=== PATIENT | female | born 1970 | race Caucasian/White ===

== ENCOUNTER 2018-09-22 00:16 | Observation (INO) | payer BC ==
[~2018-09-22] VITALS: Ht 165.1 cm; Wt 113.4 kg
[~2018-09-22 00:16] MED LIST: CYCL10 PO; NAPR500 PO; Naprosyn500 MG PO; Norco 5-325 Ta1 EACH PO
[2018-09-22 01:29] LABS: BASOPHILS ABSOLUTE AUTO 0.05 K/mm3 (0.00-0.23); BASOPHILS PERCENT AUTO 1 % (0-2); EOSINOPHILS ABSOLUTE AUTO 0.12 K/mm3 (0.00-0.68); EOSINOPHILS PERCENT AUTO 1 % (0-6); Hematocrit 45.1 % (33.0-51.0); Hemoglobin 14.5 g/dL (11.5-16.0); IMMATURE GRAN ABSOLUTE AUTO 0.03 K/mm3 (0.00-0.10); IMMATURE GRAN PERCENT AUTO 0 % (0-1); LYMPHOCYTES ABSOLUTE AUTO 1.47 K/mm3 (0.84-5.20); LYMPHOCYTES PERCENT AUTO 14 % (21-46); MONOCYTES ABSOLUTE AUTO 0.45 K/mm3 (0.16-1.47); MONOCYTES PERCENT AUTO 4 % (4-13); Mean Corpuscular HGB 30.5 pg (26.0-34.0); Mean Corpuscular HGB Conc 32.2 g/dL (31.5-36.5); Mean Corpuscular Volume 95 fL (80-100); NEUTROPHILS ABSOLUTE AUTO 8.11 K/mm3 (1.96-9.15); NEUTROPHILS PERCENT AUTO 79 % (41-73); Platelet Count 375 K/mm3 (150-400); RDW Coefficient Variation 12.5 % (11.7-14.2); RDW Standard Deviation 43.7 fL (35.1-46.3); Red Blood Cell Count 4.75 M/mm3 (3.80-5.20); White Blood Cell Count 10.23 K/mm3 (4.00-11.30)
[2018-09-22 01:51] LABS: Alanine Aminotransfer (ALT/SGP 38 U/L (12-78); Albumin, Blood 4.1 g/dL (3.4-5.0); Albumin/Globulin Ratio 0.8 (0.8-1.8); Alk Phos 67 U/L (50-136); Anion Gap 8 mmol/L (6-16); Aspartate Aminotrans (AST/SGOT 31 U/L (12-37); Bilirubin, Total 0.5 mg/dL (0.1-1.0); Blood Urea Nitrogen 12 mg/dL (8-24); Bun/Creatinine Ratio 17.3 (12.0-20.0); CO2, Blood 27 mmol/L (21-32); Calcium, Blood 10.8 mg/dL (8.5-10.1); Chloride, Blood 103 mmol/L (98-108); Creatinine, Blood 0.69 mg/dL (0.40-1.00); Glomerular Filtration Rate >60 (60-); Glucose, Blood 154 mg/dL (70-99); Potassium, Blood 3.8 mmol/L (3.5-5.5); Sodium, Blood 138 mmol/L (136-145); Total Protein, Blood 9.1 g/dL (6.4-8.2)
--- NOTE | 2018-09-22 11:35 | NUR ---
PT TO DAY SURGERY AT THIS TIME. ALL JEWELRY REMOVED, PLACED IN CUP, AND HANDED TO SPOUSE.
--- NOTE | 2018-09-22 12:09 | NUR ---
ADMINISTRATIVE TECHNICIAN AT BEDSIDE REPORT DONE
--- NOTE | 2018-09-22 13:42 | NUR ---
09/22/18 1342 Nicole Garcia ALL COUNTS CORRECT.
--- NOTE | 2018-09-22 15:30 | NUR ---
POST OP PT ARRIVAL TO ROOM AT APPROX 1445 S/P LAP TAY. PT REPORTS MINIMAL PAIN. LAP SITES X4 TO ABD ARE CDI. PT YESSI JELLOS AND CRACKERS AT THIS TIME. DENIES N/V. IVF INFUSING PER ORDERS. VSS AND IN PROGRESS. PT UP TO RESTROOM WITH SBA TO VOID. FAMILY AT SIDE FOR SUPPORT. USES CALL LIGHT APPROPRIATELY.
--- NOTE | 2018-09-22 16:50 | NUR ---
SHIFT SUMMARY PT DOING WELL POST OP. VSS. PT TAKING 1 NORCO FOR PAIN. YESSI PO INTAKE WITH NO N/V. STERI STRIPS TO ABD X4 REMAIN CDI. PLAN IS TO AMBULATE PT IN HALLWAY AFTER DINNER. FAMILY AT BEDSIDE FOR SUPPORT. CALL LIGHT WITHIN REACH.
[2018-09-22] MEDS ORDERED: HYDR1TAB94 PO (17:06)
--- NOTE | 2018-09-22 17:55 | NUR ---
DISCHARGE PT DISCHARGING HOME. PT PAIN MANAGED WITH 1 NORCO, PT INDEPENDENTLY AMBULATING, VOIDING, AND TOLERATING PO INTAKE WITH NO N/V. POST OP VSS AND COMPLETE. PT EDUCATED ON AND RECEIVED PRINTED DISCHARGE INSTRUCTIONS AND VERBALIZED AN UNDERSTANDING. HARD RX GIVEN TO PT FOR NORCO. IVS DC'D. PT GATHERING ALL PERSONAL BELONGINGS. FAMILY AT SIDE TO TAKE PT HOME.
== END 2018-09-22 18:18 | disposition home or self-care (01) ==
LOC: ER 00:16 → SURS 04:34
PROVIDERS: Emergency Medicine; ADMIT Surgery
PROC: BF13YZZ Fluoroscopy of Gallbladder and Bile Ducts using Other Contrast (ICD-10-PCS; principal; 2018-09-22 11:30)
PROC: 0FT44ZZ Resection of Gallbladder, Percutaneous Endoscopic Approach (ICD-10-PCS; principal; 2018-09-22 11:30)
DX: K80.00 Calculus of gallbladder with acute cholecystitis without obstruction (principal); Z79.899 Other long term (current) drug therapy
CPT/HCPCS: 36415; 74177; 74300; 76705; 80053; 83690; 85025; 88304; 93005; 93010; 96361; 96365-59; 96375; 96376; 99285-25; A9270-GY; C1729; C9113; G0378; J0690; J0696; J1100; J1170; J1885; J2250; J2270; J2405; J2710; J3010; J7030; J7120; Q9967

== ENCOUNTER → 2023-02-13 | Outpatient (CLI) | payer BC ==
[~2023-02-13] MED LIST changes: +HYDR1TAB94 PO
== END ==
LOC: LAB SHORT 16:25 → LAB 16:25
DX: N10 Acute pyelonephritis (principal)
CPT/HCPCS: 87086

== ENCOUNTER → 2023-02-13 | Outpatient (CLI) | payer BC ==
[2023-02-13 19:25] LABS: BASOPHILS ABSOLUTE AUTO 0.11 K/mm3 (0.00-0.23); BASOPHILS PERCENT AUTO 1 % (0-2); EOSINOPHILS ABSOLUTE AUTO 0.17 K/mm3 (0.00-0.68); EOSINOPHILS PERCENT AUTO 1 % (0-6); Hematocrit 44.5 % (33.0-51.0); Hemoglobin 15.2 g/dL (11.5-16.0); IMMATURE GRAN ABSOLUTE AUTO 0.04 K/mm3 (0.00-0.10); IMMATURE GRAN PERCENT AUTO 0 % (0-1); LYMPHOCYTES ABSOLUTE AUTO 2.36 K/mm3 (0.84-5.20); LYMPHOCYTES PERCENT AUTO 18 % (21-46); MONOCYTES ABSOLUTE AUTO 1.68 K/mm3 (0.16-1.47); MONOCYTES PERCENT AUTO 13 % (4-13); Mean Corpuscular HGB 31.4 pg (26.0-34.0); Mean Corpuscular HGB Conc 34.2 g/dL (31.5-36.5); Mean Corpuscular Volume 92 fL (80-100); Mean Platelet Volume 10.7 fL (9.1-12.4); NEUTROPHILS ABSOLUTE AUTO 8.51 K/mm3 (1.96-9.15); NEUTROPHILS PERCENT AUTO 66 % (41-73); Platelet Count 358 K/mm3 (150-400); RDW Coefficient Variation 12.9 % (11.7-14.2); RDW Standard Deviation 43.8 fL (35.1-46.3); Red Blood Cell Count 4.84 M/mm3 (3.80-5.20); White Blood Cell Count 12.87 K/mm3 (4.00-11.30)
[2023-02-13 19:38] LABS: Albumin, Blood 3.3 g/dL (3.4-5.0); Albumin/Globulin Ratio 0.6 (0.8-1.8); Bilirubin, Total 1.5 mg/dL (0.1-1.0); Bun/Creatinine Ratio 11.9 (12.0-20.0); Calcium, Blood 9.2 mg/dL (8.5-10.1); Creatinine, Blood 0.93 mg/dL (0.40-1.00); Globulin, Blood 5.5 g/dL (2.2-4.0); Potassium, Blood 3.4 mmol/L (3.5-5.5); Total Protein, Blood 8.8 g/dL (6.4-8.2)
== END ==
LOC: LAB 16:50 → LAB SHORT 16:50
PROVIDERS: Family Medicine
DX: R50.9 Fever, unspecified (principal)
CPT/HCPCS: 80053; 85025

== ENCOUNTER → 2024-04-21 | Outpatient (CLI) | payer BC ==
[2024-05-02 13:18] LABS: HPV HIGH RISK BY TMA Not Detected; HPV SOURCE Cervical
== END ==
LOC: LAB SHORT 12:42 → LAB 12:42
PROVIDERS: Advanced Practice Midwife
DX: Z01.419 Encounter for gynecological examination (general) (routine) without abnormal findings (principal)
CPT/HCPCS: 87624; G0123

== ENCOUNTER → 2024-04-21 | Outpatient (CLI) | payer BC | LOC: LAB SHORT 13:28 → LAB 13:28 | DX: N84.1 Polyp of cervix uteri (principal) | CPT/HCPCS: 88305 ==